=== PATIENT | female | born 1955 | race Caucasian/White ===

== ENCOUNTER → 2017-06-15 | Outpatient (CLI) | payer BC ==
[2005-05-01 09:15] VITALS: TEMP 97.5
== END ==
LOC: MC.RAD 11:00
DX: Z12.31 Encounter for screening mammogram for malignant neoplasm of breast (principal)

== ENCOUNTER → 2018-02-09 | Outpatient (CLI) | payer BC ==
[2005-05-01 09:15] VITALS: TEMP 97.5
== END ==
LOC: COL.RAD 07:19
DX: R10.11 Right upper quadrant pain (principal)

== ENCOUNTER → 2023-11-03 | Outpatient (CLI) | payer MEDICARE, OTHER ==
[2005-05-01 09:15] VITALS: TEMP 97.5
== END ==
LOC: MC.RAD 12:43
DX: Z12.31 Encounter for screening mammogram for malignant neoplasm of breast (principal)